=== PATIENT | male | born 1960 | race Caucasian/White ===

== ENCOUNTER → 2020-05-14 | Outpatient (CLI) | payer MEDICARE, MEDICAID ==
--- NOTE | 2020-05-14 09:01 | Diagnostic Imaging Report ---
INDICATION: Cough and right-sided chest pain for 3 months. Time of exam 8:42 AM No prior studies are available for comparison. The heart size is normal. Lungs are hyperinflated consistent with COPD. There are chronic appearing interstitial changes in the right upper lobe with associated pleural thickening. No discrete mass is identified. There is no effusion. No pneumothorax is detected. IMPRESSION: COPD with chronic interstitial fibrotic changes in the right upper lobe. Without prior radiographs possibility of superimposed pneumonia cannot be entirely excluded and continued follow-up would be recommended to confirm stability/resolution. Dictated by: Dictated on workstation # [id number]
== END ==
LOC: RAD FS 08:35
PROVIDERS: ATTEND Nurse Practitioner Family
DX: J44.9 Chronic obstructive pulmonary disease, unspecified (principal)
CPT/HCPCS: 71046

== ENCOUNTER → 2020-06-16 | Outpatient (CLI) | payer MEDICARE, MEDICAID ==
--- NOTE | 2020-06-16 13:23 | Diagnostic Imaging Report ---
INDICATION: Chronic bronchitis with chest pain on the right. COMPARISON: 05/14/2020. FINDINGS: There is considerable hyperaeration of the lungs bilaterally with interstitial lung disease. Apical pleural scarring is again demonstrated, most severely on the right, with cystic changes. This does show some increase in density today when compared with the previous exam. The heart is not enlarged. No evidence of pulmonary edema. No pleural effusion. IMPRESSION: 1. Rather severe obstructive interstitial lung disease. 2. Apical pleural scarring with increasing density in the right lung apex, probably secondary to a combination of infiltrate and pleural fluid. Dictated by: Dictated on workstation # [id number]
== END ==
LOC: RAD FS 12:30
PROVIDERS: ATTEND Nurse Practitioner Family
DX: J42 Unspecified chronic bronchitis (principal); J98.4 Other disorders of lung; J84.9 Interstitial pulmonary disease, unspecified
CPT/HCPCS: 71046

== ENCOUNTER → 2020-08-04 | Outpatient (CLI) | payer MEDICARE, MEDICAID ==
[~2020-08-04] MED LIST: HOLD METFORMIN - RECEIVED CONTRAST 20 ML VIAL IV SCH; IOHEXOL 350 MG/ML 100 ML (OMNIPAQUE 350) VIAL IV ONE; NS 100 ML (IVPB) BAG IV ONE; RT-ALBUTEROL SULF 2.5 MG/3 ML PRE-MIX VIAL INH ONE
[2020-08-04 08:07] LABS: BUN/CREATININE RATIO 9; CREATININE SERUM 0.87 MG/DL (0.60-1.30); GFR ESTIMATED > 60
--- NOTE | 2020-08-04 09:24 | Diagnostic Imaging Report ---
EXAMINATION: CT Chest with intravenous contrast. TECHNIQUE: Multiple contiguous axial images were obtained through the chest after the uneventful administration of intravenous contrast. All CT scans use one or more of the following dose optimizing techniques: automated exposure control, MA and/or KvP adjustment based on a patient size and exam type, or iterative reconstruction. HISTORY: Abnormal chest radiograph. COMPARISON: None available. FINDINGS: Lungs are severely emphysematous with bullous changes in the apices, right greater than left. There is an area of fibrosis and traction bronchiectasis in the posterior segment of the right upper lobe. Lungs are markedly hyperexpanded. No pleural effusion. No pneumothorax. There is a 9 mm left upper lobe nodule. There is mucous in the right upper lobe bronchus. There is no axillary or supraclavicular lymphadenopathy. There is no mediastinal lymphadenopathy. Heart size is normal. There are severe coronary artery calcifications. No pericardial effusion. Aorta is normal in caliber. Limited views of the upper abdomen are unremarkable. There are no suspicious osseus lesions. IMPRESSION: 1. The radiographic abnormality is an area of fibrosis in right upper lobe with associated traction bronchiectasis, likely represents a sequela of prior infection. Lungs are severely emphysematous. 2. There is an indeterminate 9 mm left upper lobe nodule. According to the Fleischner Society guidelines: Recommend CT at 3 months. Dictated by: Dictated on workstation # [id number]
== END ==
LOC: RT 08:00
PROVIDERS: ATTEND Nurse Practitioner Family
DX: Z01.812 Encounter for preprocedural laboratory examination (principal); J84.10 Pulmonary fibrosis, unspecified; J47.9 Bronchiectasis, uncomplicated; J43.9 Emphysema, unspecified; R91.1 Solitary pulmonary nodule; F17.210 Nicotine dependence, cigarettes, uncomplicated
CPT/HCPCS: 36415; 71260; 82565; 84520; 94060; 94726; 94729

== ENCOUNTER → 2020-12-09 | Outpatient (CLI) | payer MEDICARE, MEDICAID ==
[~2020-12-09] MED LIST changes: +CATHETER FLUSH 10 ML SYR IV PRN; -RT-ALBUTEROL SULF 2.5 MG/3 ML PRE-MIX VIAL INH ONE
[2020-12-09 09:24] LABS: BUN/CREATININE RATIO 13; CREATININE SERUM 0.88 MG/DL (0.60-1.30); GFR ESTIMATED > 60
--- NOTE | 2020-12-09 10:53 | Diagnostic Imaging Report ---
EXAMINATION: CT Chest with intravenous contrast. TECHNIQUE: Multiple contiguous axial images were obtained through the chest after the uneventful administration of intravenous contrast. All CT scans use one or more of the following dose optimizing techniques: automated exposure control, MA and/or KvP adjustment based on a patient size and exam type, or iterative reconstruction. HISTORY: Abnormal CT COMPARISON: 08/04/2020 FINDINGS: There is an unchanged area of fibrosis, cavitation and traction bronchiectasis in the right upper lobe. It has concave margins and the degree of soft tissue is unchanged. Lungs are severely emphysematous. No pleural effusion. No pneumothorax. There is an unchanged 9 x 8 mm nodule in the left upper lobe. There is no axillary or supraclavicular lymphadenopathy. There is no mediastinal lymphadenopathy. Heart size is normal. There are mild coronary artery calcifications. No pericardial effusion. Aorta is normal in caliber. Limited views of the upper abdomen show mild uniform thickening of the adrenal glands without discrete nodule. There are no suspicious osseus lesions. IMPRESSION: 1. Unchanged fibrosis in the right upper lobe most consistent with prior infection. 2. Unchanged 9 mm left upper lobe nodule. Additional 12 month follow-up is recommended. Dictated by: Dictated on workstation # [id number]
== END ==
LOC: RAD FS 08:47
PROVIDERS: ATTEND Nurse Practitioner Family
DX: J84.10 Pulmonary fibrosis, unspecified (principal); R91.1 Solitary pulmonary nodule
CPT/HCPCS: 36415; 71260; 82565; 84520

== ENCOUNTER → 2021-11-23 | Outpatient (CLI) | payer MEDICARE, MEDICAID ==
--- NOTE | 2021-11-23 14:44 | Diagnostic Imaging Report ---
EXAMINATION: CT chest with intravenous contrast. TECHNIQUE: Multiple contiguous axial images were obtained through the chest after the uneventful administration of intravenous contrast. All CT scans use one or more of the following dose optimizing techniques: automated exposure control, MA and/or KvP adjustment based on patient size and exam type or iterative reconstruction. HISTORY: Pulmonary nodule COMPARISON: 12/09/2020 FINDINGS: A 7 mm average diameter left upper lobe pulmonary nodule previously measured 4.5 mm in average diameter. Lungs are severely emphysematous. There is a new nodule in the superior segment of the left lower lobe measuring 1.1 x 0.7 cm. There is a stable 10 mm nodule in the left upper lobe. There is an area of scarring and bronchiectasis in the right upper lobe which may be related to prior infection. No pleural effusion or pneumothorax. There is no axillary or supraclavicular lymphadenopathy. There is no mediastinal lymphadenopathy. Heart size is normal. There are moderate coronary artery calcifications. No pericardial effusion. Aorta is normal in caliber. Limited views of the upper abdomen are unremarkable. There are no suspicious osseus lesions. IMPRESSION: 1. There is a new superior segment left lower lobe nodule and increase in size of the left upper lobe nodule. Three month follow-up is recommended. PET/CT can be considered but there are likely too small for adequate characterization. 2. Unchanged scarring in the right upper lobe likely related to prior infection. Dictated by: Dictated on workstation # [id number]
== END ==
LOC: RAD FS 13:26
PROVIDERS: ATTEND Nurse Practitioner Family
DX: J98.4 Other disorders of lung (principal); R91.8 Other nonspecific abnormal finding of lung field
CPT/HCPCS: 71260

== ENCOUNTER → 2022-02-24 | Outpatient (CLI) | payer MEDICARE, MEDICAID ==
[2022-02-24 09:47] LABS: BUN/CREATININE RATIO 11; CARBON DIOXIDE 27 MMOL/L (21-32); CHLORIDE 102 MMOL/L (98-107); CREATININE SERUM 0.88 MG/DL (0.60-1.30); GFR ESTIMATED 97; POTASSIUM 3.9 MMOL/L (3.6-5.0); SODIUM 140 MMOL/L (135-145)
[2022-02-24 09:48] LABS: ALANINE AMINOTRANSFERASE 18 U/L (0-55); ALKALINE PHOSPHATASE 92 U/L (40-136); BILIRUBIN,TOTAL 0.6 MG/DL (0.1-1.0); CALCIUM 9.7 MG/DL (8.5-10.1); GLUCOSE 89 MG/DL (70-105); TOTAL PROTEIN 7.9 GM/DL (6.4-8.2)
[2022-02-24 09:49] LABS: ALBUMIN 4.7 GM/DL (3.2-4.5)
--- NOTE | 2022-02-24 12:29 | Diagnostic Imaging Report ---
PROCEDURE: CT chest with contrast only. TECHNIQUE: Multiple contiguous axial images were obtained through the chest after administration of intravenous contrast. Auto Exposure Controls were utilized during the CT exam to meet ALARA standards for radiation dose reduction. INDICATION: Followup pulmonary nodules. COMPARISON: 11/23/2021. FINDINGS: A 7 mm average diameter juxtapleural nodule in the left upper lobe is unchanged. The superior segment left lower lobe mass today measures 12 mm x 7 mm, previously 11 mm x 7 mm. This minimal measured difference is likely owing to slice localization and is not significant. Severe centrilobular emphysema is stable. Some areas of linear scarring and air trapping are chronic. A juxtapleural mass laterally and posteriorly in the left lower lobe measuring 9.4 mm shows continued stability and has been noted on multiple priors. No new mass is found. No features suggestive of pneumonia. There is some chronic bronchiectasis and centrilobular emphysema with right greater than left biapical curvilinear pleural parenchymal scarring. No pneumothorax or effusion. There are aortic atherosclerotic vascular calcifications. No acute chest wall abnormality. Emphysematous hyperexpansion of the lungs is symmetric and chronic. Mild chronic superior endplate wedging of a midthoracic vertebral body segment is chronic. IMPRESSION: The two masses of interest in the left upper lobe and superior segment of the left lower lobe show no significant roll changer the last 3 months. A 6 month followup is recommended. Other findings are stable and chronic from multiple previous exams. No adverse development. Dictated by: Dictated on workstation # [id number]
== END ==
LOC: LAB FS 09:06
PROVIDERS: ATTEND Nurse Practitioner Family
DX: R91.8 Other nonspecific abnormal finding of lung field (principal)
CPT/HCPCS: 36415; 71260; 80053; Q9967

== ENCOUNTER → 2022-10-04 | Outpatient (CLI) | payer OTHER, MEDICAID ==
[~2022-10-04] MED LIST changes: +RT-ALBUTEROL SULF 2.5 MG/3 ML PRE-MIX VIAL INH ONE
[2022-10-04 10:44] LABS: ALBUMIN 4.4 GM/DL (3.2-4.5); BILIRUBIN,TOTAL 0.4 MG/DL (0.1-1.0); CREATININE SERUM 0.83 MG/DL (0.60-1.30); POTASSIUM 3.6 MMOL/L (3.6-5.0); TOTAL PROTEIN 7.6 GM/DL (6.4-8.2)
--- NOTE | 2022-10-04 13:36 | Diagnostic Imaging Report ---
PROCEDURE: CT chest with contrast only. TECHNIQUE: Multiple contiguous axial images were obtained through the chest after administration of intravenous contrast. Auto Exposure Controls were utilized during the CT exam to meet ALARA standards for radiation dose reduction. INDICATION: Lung nodule for follow-up. COMPARISON: Exam is compared with study 02/24/2022. FINDINGS: 8 mm nodule subpleural left upper lobe laterally is unchanged. Juxta-fissural nodule top of the superior segment left lower lobe today 9 mm maximal, decreased. Additional more posterolateral and slightly inferior nodule also in the superior segment left lower lobe measured 13 mm x 9 mm, unchanged. Some focal bronchiectasis and scarring in the lateral right upper lobe with regional bronchiectasis unchanged. Centrilobular emphysematous changes remain severe, asymmetric, greater right, and most pronounced at the upper lobes. The mass in the lingular segment of the left upper lobe 11 mm, unchanged. No new mass identified. There is no axillary, hilar, or mediastinal lymphadenopathy. There is a tiny hiatal hernia, chronic. Some low-density thickening of the left adrenal gland diffusely, unchanged. IMPRESSION: 1. Severe COPD with areas of pleural-parenchymal scarring in the right upper lobe, unchanged. 2. Multiple pulmonary nodules showed no significant change from prior with no new mass identified and no thoracic lymphadenopathy. Given the presumed high risk status with severe COPD present, continued follow-up of these indeterminate lung masses is recommended; repeat exam within six months suggested. Dictated by: Dictated on workstation # [id number]
== END ==
LOC: RT 10:03
PROVIDERS: ATTEND Nurse Practitioner Family
DX: J44.9 Chronic obstructive pulmonary disease, unspecified (principal); R91.8 Other nonspecific abnormal finding of lung field; R93.89 Abnormal findings on diagnostic imaging of other specified body structures
CPT/HCPCS: 36415; 71260; 80053; 94060; 94726; 94729

== ENCOUNTER → 2023-06-23 | Outpatient (CLI) | payer OTHER, MEDICAID | LOC: CARD 10:48 | PROVIDERS: ATTEND Internal Medicine Critical Care Medicine | DX: I51.7 Cardiomegaly (principal); R91.8 Other nonspecific abnormal finding of lung field | CPT/HCPCS: 93306 ==